=== PATIENT | male | born 2000 | race Hispanic/Latino ===

== ENCOUNTER 2018-10-23 19:45 | Emergency (ER) | payer BC, MEDICAID ==
[~2018-10-23] VITALS: Ht 177.8 cm; Wt 77.3 kg
[2018-10-23] MEDS ORDERED: KEPP1TAB PO (20:04)
[2018-10-23] MEDS ORDERED: NS 1,000 ML IV ONE ×2 (20:15→21:30)
[2018-10-23] MEDS ORDERED: levETIRAcetam INJection 500 MG in D5W MINI-BAG PLUS 100 ML IV ONE (20:30)
[2018-10-23 20:51] LABS: BASO % 0.4 % (0.0-1.0); EOS # 0.1 10^3/uL (0.0-0.50); EOS % 1.2 % (0.0-3.0); HEMATOCRIT 47.5 % (42.0-52.0); HEMOGLOBIN 15.6 g/dl (13.5-17.5); LYMPH # 3.1 10^3/uL (1.5-6.5); LYMPH % 42.6 % (24.0-44.0); MEAN CORPUSCULAR HEMOGLOBIN 30.8 pg (27.0-33.0); MEAN CORPUSCULAR HGB CONC 32.8 g/dl (32.0-36.5); MEAN CORPUSCULAR VOLUME 93.9 fl (80.0-96.0); MONO # 0.6 10^3/uL (0.0-0.8); MONO % 8.5 % (0.0-5.0); NEUTROPHILS # 3.4 10^3/uL (1.8-7.7); PLATELET COUNT, AUTOMATED 215 10^3/uL (150-450); RED BLOOD COUNT 5.06 10^6/uL (4.30-6.10); WHITE BLOOD COUNT 7.3 10^3/uL (4.0-10.0)
[2018-10-23 21:23] LABS: BLOOD UREA NITROGEN 12 MG/DL (7-18); CALCIUM LEVEL 9.1 MG/DL (8.5-10.1); CARBON DIOXIDE LEVEL 31 MEQ/L (21-32); CHLORIDE LEVEL 103 MEQ/L (98-107); CPK CREATINE PHOSPHOKINASE 325 U/L (39-308); CREATININE FOR GFR 1.07 MG/DL (0.70-1.30); GLUCOSE, FASTING 84 MG/DL (70-100); POTASSIUM SERUM 3.7 MEQ/L (3.5-5.1); SODIUM LEVEL 144 MEQ/L (136-145)
--- NOTE | 2018-10-23 21:23 | REPVR ---
EXAM: CT Head Without Contrast EXAM DATE/TIME: 10/23/18 (8:21pm) CLINICAL HISTORY: 18 year old male. Seizure. TECHNIQUE: Imaging protocol: Computed tomography images of the head without contrast. Radiation optimization: All CT scans at this facility use at least one of these dose optimization techniques: automated exposure control; mA and/or kV adjustment per patient size (includes targeted exams where dose is matched to clinical indication); or iterative reconstruction. COMPARISON: No relevant prior studies available FINDINGS: Brain: Unremarkable. No acute hemorrhage. Unremarkable white matter. No mass effect. Ventricles: Normal. No ventriculomegaly. Bones/joints: Unremarkable. No acute fracture. Sinuses: Visualized sinuses are unremarkable. No fluid levels. Mastoid air cells: Visualized mastoid air cells are well aerated. No mastoid effusion. Soft tissues: Unremarkable. IMPRESSION: No acute intracranial pathology is appreciated. Electronically signed by: Zohreh Alaniz On 10/23/2018 21:23:22 PM
[2018-10-23] MEDS ORDERED: KEPP10002 PO (23:35)
[2018-10-23 23:53] VITALS: BP 114/64
== END 2018-10-24 00:09 | disposition home or self-care (01) ==
LOC: M ED 19:45
DX: G40.909 Epilepsy, unspecified, not intractable, without status epilepticus (principal); Z79.899 Other long term (current) drug therapy
CPT/HCPCS: 70450; 80048; 82550; 83605; 85025; 96361; 96374; 99284; J1953

== ENCOUNTER → 2018-10-28 | Outpatient (CLI) | payer BC, MEDICAID, OTHER ==
[~2018-10-28] MED LIST: KEPP10002 PO; KEPP1TAB PO; PROHANCE 279.3MG/ML 15ML VIAL (A9576) As Ordered ONE
--- NOTE | 2018-10-28 12:49 | REPVR ---
EXAM: MR Head Without and With Contrast EXAM DATE/TIME: 10/28/2018 11:37 AM CLINICAL HISTORY: 18 years old, male; Patient HX: Seizure, order states ? tumor or lesion; Additional info: Seizure like activity and recent diagnosis of epliopsy TECHNIQUE: Imaging protocol: MR of the head without and with intravenous contrast. Contrast material: PROHANCE;Contrast volume: 15 ml;Contrast route: IV; COMPARISON: CT Head without contrast 10/23/2018 8:18 PM FINDINGS: Brain: Normal. No acute infarct. No hemorrhage. No significant white matter disease. No edema. Ventricles: Normal. No ventriculomegaly. Bones/joints: Unremarkable. Soft tissues: Normal. Sinuses: Normal as visualized. No acute sinusitis. Mastoid air cells: Normal as visualized. No mastoid effusion. Lymph nodes: There are multiple enlarged cervical lymph nodes, more than one would expect in an otherwise healthy 18-year-old male. Orbits: Unremarkable. Other findings: There is no abnormal enhancement. IMPRESSION: 1. No acute intracranial findings identified. Please refer to incidental findings in body of report. 2. There are multiple enlarged cervical lymph nodes, more than one would expect in an otherwise healthy 18-year-old male. Please correlate with the presence of any known malignancy. Follow postcontrast CT scan of the neck is recommended. Electronically signed by: Thomas Trimble On 10/28/2018 12:49:25 PM
== END ==
LOC: M RAD 09:58
PROVIDERS: ATTEND Physician Assistant Medical
DX: G40.909 Epilepsy, unspecified, not intractable, without status epilepticus (principal)
CPT/HCPCS: 70553; A9576